=== PATIENT | male | born 1955 | race African-American/Black ===

== ENCOUNTER → 2022-02-18 | Outpatient (CLI) | payer MEDICARE | LOC: US 06:29 | PROVIDERS: ATTEND Emergency Medicine | DX: Z13.6 Encounter for screening for cardiovascular disorders (principal) | CPT/HCPCS: 76700 ==

== ENCOUNTER → 2022-06-29 | Outpatient (CLI) | payer MEDICARE | LOC: US 07:57 | PROVIDERS: ATTEND Emergency Medicine | DX: F17.200 Nicotine dependence, unspecified, uncomplicated (principal) | CPT/HCPCS: 76770 ==

== ENCOUNTER → 2024-03-15 | Outpatient (REF) | payer MEDICARE | LOC: RAD 15:45 | PROVIDERS: ATTEND Emergency Medicine | DX: M54.6 Pain in thoracic spine (principal); M54.50 Low back pain, unspecified | CPT/HCPCS: 72072; 72110 ==